=== PATIENT | male | born 1985 | race Two or more races ===

== ENCOUNTER 2020-01-24 16:13 | Emergency (ER) | payer OTHER ==
[~2020-01-24] VITALS: Ht 185.4 cm; Wt 95.3 kg
[2020-01-24] MEDS ORDERED: IBUPROFEN 800 MG TAB PO ONE (19:45)
[2020-01-24] MEDS ORDERED: cefTRIAXone SODIUM 250 MG VL IM ONE (19:45)
[2020-01-24 20:03] VITALS: BP 115/71
== END 2020-01-24 20:03 ==
LOC: ER 16:13 → EEVIPCON 16:13 → ER 20:03
DX: N45.3 Epididymo-orchitis (principal)
CPT/HCPCS: 76870; 96372; 99284; J0696

== ENCOUNTER 2020-09-11 12:37 | Inpatient (IN) | payer OTHER ==
[~2020-09-11] VITALS: Ht 165.1 cm; Wt 83.5 kg
[2020-09-11 13:05] VITALS: BP 142/77
[2020-09-11 14:11] LABS: Basophils # (auto) 0 10 ^3/uL (0-0.2); Basophils % (auto) 0.6 % (0.0-2.0); Eosinophils # (auto) 0 10 ^3/uL (0-0.8); Eosinophils % (auto) 0.4 % (0.0-7.0); Hematocrit 46.2 % (41.0-53.0); Hemoglobin 15.9 g/dL (13.5-17.5); Lymphocytes # (auto) 1.7 10 ^3/uL (0.4-5.4); Mean Corpuscular Hemoglobin 29.7 pg (28.0-32.0); Mean Corpuscular Hgb Conc. 34.3 g/dL (32.0-36.0); Mean Corpuscular Volume 86.5 fL (80.0-100.0); Monocytes # (auto) 0.3 10 ^3/uL (0-1.3); Monocytes % (auto) 4.3 % (0.0-12.0); Neutrophils # (auto) 3.9 10 ^3/uL (1.6-8.6); Neutrophils % (auto) 65.7 % (37.0-80.0); Nucleated Red Blood Cells % 0.2 %; Platelet Count (auto) 221 10^3/uL (140-450); Red Blood Cells 5.34 10^6/uL (4.5-5.90); Red Cell Distribution Width 14.4 % (11.8-14.3); White Blood Cell 5.9 10^3/uL (4.4-10.8)
[2020-09-11 14:25] LABS: INR 1.1 (0.9-1.15); Partial Thromboplastin Time 31.6 sec (23.0-31.2)
[2020-09-11 14:30] LABS: Albumin 4.1 g/dL (3.4-5.0); Calcium 9.3 mg/dL (8.5-10.1); Potassium 4.6 mmol/L (3.5-5.1)
[2020-09-11 14:33] LABS: BUN/Creatinine Ratio 13.6; Bilirubin, Total 0.9 mg/dL (0.2-1.0); Total Protein 8.8 g/dL (6.4-8.2)
[2020-09-11] MEDS ORDERED: IOHEXOL 300 MG/ML 100ML BOTTLE IJ ONE (15:19)
[2020-09-11 17:00] VITALS: BP 153/87
[2020-09-11] MEDS ORDERED: SUMAtriptan SUCCINATE 25 MG TAB PO PRN ×2 (20:45→21:15)
[2020-09-11] MEDS: SUMAtriptan SUCCINATE 25 MG TAB PO PRN (21:02)
[2020-09-11 21:24] LABS: Urine Bacteria NONE SEEN /hpf (None Seen); Urine Blood Negative /uL (Negative); Urine WBC <1 /hpf (0 - 3)
[2020-09-11 22:00] VITALS: BP 150/86
[2020-09-12 05:00] VITALS: BP 133/76
[2020-09-12] MEDS ORDERED: PROPOFOL 10 MG/ML 20 ML IV ONE (07:02)
[2020-09-12] MEDS ORDERED: ONDANSETRON HCL 4 MG/2 ML VIAL ONE (07:02)
[2020-09-12] MEDS ORDERED: MIDAZOLAM HCL 1MG/1ML-2 ML VIAL ONE (07:02)
[2020-09-12] MEDS ORDERED: fentaNYL CITRATE 100 MCG/2 ML VL ONE (07:02)
[2020-09-12] MEDS ORDERED: GLYCOPYRROLATE 0.2 MG/ML 1ML VIAL ONE (07:02)
[2020-09-12] MEDS ORDERED: LIDOCAINE W/ EPINEPHRINE 1% 20ML VIAL ONE (07:02)
[2020-09-12] MEDS ORDERED: SODIUM CHLORIDE LOCK 10 ML ONE (07:02)
[2020-09-12] MEDS ORDERED: NEOMYCIN-BACITRACIN-POLYM 15GM TOP OINT TOP ONE (07:03)
[2020-09-12] MEDS ORDERED: ceFAZolin 1GM/50ML 50 ML IV ONE (07:06)
[2020-09-12] MEDS ORDERED: LIDOCAINE HCL 2% TOP JELLY 5ML TOP ONE (07:41)
[2020-09-12] MEDS ORDERED: LIDOCAINE 2% (LOCAL ANESTH.) PF 5ml SDV ONE (07:41)
[2020-09-12 08:30] VITALS: BP 163/106
[2020-09-12] MEDS ORDERED: HYDROmorphone HCL 2 MG/ML VL IV PRN ×3 (08:30→11:45)
[2020-09-12] MEDS ORDERED: METOCLOPRAMIDE HCL 5MG/ml INJ 2ml VIAL IV PRN (08:30)
[2020-09-12] MEDS ORDERED: MORPHINE SULFATE 4 MG/ML SYR/VIAL IV PRN (08:30)
[2020-09-12] MEDS: ENOXAPARIN SOD 40 MG/0.4 ML SYRINGE SC SCH (10:49)
[2020-09-12] MEDS ORDERED: ONDANSETRON HCL 4 MG/2 ML VIAL IV PRN (11:45)
[2020-09-12] MEDS: ONDANSETRON HCL 4 MG/2 ML VIAL IV PRN (12:16)
[2020-09-12] MEDS: ceFAZolin 1GM/50ML 50 ML IV SCH ×2 (14:30→22:02)
[2020-09-12 14:31] VITALS: BP 134/93
[2020-09-12 16:36] VITALS: BP 128/69
[2020-09-12 22:00] VITALS: BP 156/92
[2020-09-13 05:00] VITALS: BP 118/70
[2020-09-13] MEDS: ceFAZolin 1GM/50ML 50 ML IV SCH ×3 (06:22→22:02)
[2020-09-13 06:39] LABS: Basophils # (auto) 0 10 ^3/uL (0-0.2); Basophils % (auto) 0.2 % (0.0-2.0); Eosinophils # (auto) 0 10 ^3/uL (0-0.8); Hematocrit 46.1 % (41.0-53.0); Hemoglobin 15.9 g/dL (13.5-17.5); Lymphocytes # (auto) 2.3 10 ^3/uL (0.4-5.4); Lymphocytes % (auto) 18.1 % (10.0-50.0); Mean Corpuscular Hemoglobin 29.6 pg (28.0-32.0); Mean Corpuscular Hgb Conc. 34.5 g/dL (32.0-36.0); Mean Corpuscular Volume 85.7 fL (80.0-100.0); Monocytes # (auto) 0.8 10 ^3/uL (0-1.3); Monocytes % (auto) 6.2 % (0.0-12.0); Neutrophils # (auto) 9.5 10 ^3/uL (1.6-8.6); Neutrophils % (auto) 75.5 % (37.0-80.0); Nucleated Red Blood Cells % 0.3 %; Platelet Count (auto) 228 10^3/uL (140-450); Red Blood Cells 5.39 10^6/uL (4.5-5.90); White Blood Cell 12.6 10^3/uL (4.4-10.8)
[2020-09-13 06:53] LABS: Albumin 3.5 g/dL (3.4-5.0); Calcium 8.6 mg/dL (8.5-10.1); Potassium 4.4 mmol/L (3.5-5.1)
[2020-09-13 06:58] LABS: BUN/Creatinine Ratio 17.7; Bilirubin, Total 0.6 mg/dL (0.2-1.0)
[2020-09-13 08:15] VITALS: BP 144/117
[2020-09-13] MEDS: ENOXAPARIN SOD 40 MG/0.4 ML SYRINGE SC SCH (09:04)
[2020-09-13 09:12] VITALS: BP 144/117
[2020-09-13 13:00] VITALS: BP 161/94
[2020-09-13] MEDS ORDERED: HYDROmorphone HCL 2 MG/ML VL IV PRN (13:15)
[2020-09-13] MEDS: OXYCODONE W/ ACETAMINOPHEN 5/325MG TABLET PO PRN (14:05)
[2020-09-13 17:22] VITALS: BP 136/93
[2020-09-13 22:00] VITALS: BP 149/93
[2020-09-14 05:00] VITALS: BP 146/97
[2020-09-14] MEDS: ceFAZolin 1GM/50ML 50 ML IV SCH ×3 (05:56→21:31)
[2020-09-14] MEDS ORDERED: IOPAMIDOL 76 % (ISOVUE-370) 100ML BTL IV ONE (08:38)
[2020-09-14 09:00] VITALS: BP 139/95
[2020-09-14] MEDS: amLODIPine BESYLATE 5 MG TAB PO SCH (09:27)
[2020-09-14] MEDS: PANTOPRAZOLE 40 MG TAB PO SCH (09:28)
[2020-09-14] MEDS: ENOXAPARIN SOD 40 MG/0.4 ML SYRINGE SC SCH (09:28)
[2020-09-14] MEDS: OXYCODONE W/ ACETAMINOPHEN 5/325MG TABLET PO PRN ×2 (09:39→21:31)
[2020-09-14] MEDS ORDERED: GADOTERATE MEG 10 MMOL/20ml INJ (0.5MMOL/ml) IV ONE (12:02)
[2020-09-14 12:40] VITALS: BP 142/92
[2020-09-14 16:18] VITALS: BP 148/91
[2020-09-14] MEDS: SUMAtriptan SUCCINATE 25 MG TAB PO PRN (18:08)
[2020-09-14 22:00] VITALS: BP 148/96
[2020-09-15 05:00] VITALS: BP 123/86
[2020-09-15] MEDS: ceFAZolin 1GM/50ML 50 ML IV SCH ×4 (06:26→21:48)
[2020-09-15 09:00] VITALS: BP 139/90
[2020-09-15] MEDS: ENOXAPARIN SOD 40 MG/0.4 ML SYRINGE SC SCH (09:35)
[2020-09-15] MEDS: PANTOPRAZOLE 40 MG TAB PO SCH (09:35)
[2020-09-15] MEDS: amLODIPine BESYLATE 5 MG TAB PO SCH (09:35)
[2020-09-15] MEDS: SOD CHL 0.45% 1,000 ML IV SCH ×2 (11:41→17:55)
[2020-09-15 11:52] LABS: INR 1.05 (0.9-1.15); Partial Thromboplastin Time 30.2 sec (23.0-31.2)
[2020-09-15 12:50] VITALS: BP 99/66
[2020-09-15 13:00] VITALS: BP 142/92
[2020-09-15] MEDS ORDERED: GADOTERATE MEG 10 MMOL/20ml INJ (0.5MMOL/ml) IV ONE (13:22)
[2020-09-15] MEDS: HEPARIN SODIUM (PORCINE) 5000 UNITS/ML 1ML VIAL ONE ×2 (13:33→14:50)
[2020-09-15] MEDS ORDERED: LIDOCAINE 1% HCL (LOCAL ANESTH.) INJ 20ML MDV ONE (13:33)
[2020-09-15] MEDS ORDERED: HEPARIN 1,000 UNITS/ml 1ML VIAL ONE (13:33)
[2020-09-15] MEDS ORDERED: fentaNYL CITRATE 100 MCG/2 ML VL ONE (13:44)
[2020-09-15] MEDS ORDERED: MIDAZOLAM HCL 1MG/1ML-2 ML VIAL ONE (13:44)
[2020-09-15] MEDS ORDERED: PROPOFOL 10 MG/ML 20 ML IV ONE (13:46)
[2020-09-15] MEDS ORDERED: cefOXitin 2GM/100ML 100 ML IV ONE (13:50)
[2020-09-15] MEDS ORDERED: BUPIVACAINE 0.5% MPF INJ 30ML SDV IJ ONE (14:35)
[2020-09-15] MEDS ORDERED: ONDANSETRON HCL 4 MG/2 ML VIAL ONE (14:40)
[2020-09-15] MEDS ORDERED: HYDROmorphone HCL 2 MG/ML VL IV PRN ×2 (15:30)
[2020-09-15] MEDS ORDERED: METOCLOPRAMIDE HCL 5MG/ml INJ 2ml VIAL IV PRN (15:30)
[2020-09-15] MEDS: OXYCODONE W/ ACETAMINOPHEN 5/325MG TABLET PO PRN ×2 (16:53→21:48)
[2020-09-15 17:00] VITALS: BP 141/87
[2020-09-15 22:00] VITALS: BP 155/90
[2020-09-16] MEDS: SOD CHL 0.45% 1,000 ML IV SCH ×4 (00:35→22:38)
[2020-09-16 05:00] VITALS: BP 135/79
[2020-09-16] MEDS: ceFAZolin 1GM/50ML 50 ML IV SCH ×3 (05:44→22:38)
[2020-09-16 06:53] LABS: Calcium 8.4 mg/dL (8.5-10.1); Potassium 4.4 mmol/L (3.5-5.1)
[2020-09-16 06:55] LABS: BUN/Creatinine Ratio 13.3
[2020-09-16 09:00] VITALS: BP 146/105
[2020-09-16] MEDS: PANTOPRAZOLE 40 MG TAB PO SCH (09:48)
[2020-09-16] MEDS: amLODIPine BESYLATE 5 MG TAB PO SCH (09:48)
[2020-09-16] MEDS: ENOXAPARIN SOD 40 MG/0.4 ML SYRINGE SC SCH (09:48)
[2020-09-16] MEDS: OXYCODONE W/ ACETAMINOPHEN 5/325MG TABLET PO PRN ×3 (09:49→22:39)
[2020-09-16 14:46] VITALS: BP 133/70
[2020-09-16 16:50] VITALS: BP 135/86
[2020-09-16 22:00] VITALS: BP 137/91
[2020-09-17] MEDS: SOD CHL 0.45% 1,000 ML IV SCH ×2 (03:39→11:14)
[2020-09-17 05:00] VITALS: BP 129/79
[2020-09-17] MEDS: ceFAZolin 1GM/50ML 50 ML IV SCH ×3 (05:58→21:07)
[2020-09-17 08:00] VITALS: BP 137/87
[2020-09-17 09:00] VITALS: BP 137/87
[2020-09-17] MEDS: PANTOPRAZOLE 40 MG TAB PO SCH (11:15)
[2020-09-17] MEDS: amLODIPine BESYLATE 5 MG TAB PO SCH (11:15)
[2020-09-17] MEDS: ENOXAPARIN SOD 40 MG/0.4 ML SYRINGE SC SCH (11:16)
[2020-09-17 13:00] VITALS: BP 145/94
[2020-09-17 17:00] VITALS: BP 141/78
[2020-09-17] MEDS: OXYCODONE W/ ACETAMINOPHEN 5/325MG TABLET PO PRN (17:09)
[2020-09-17] MEDS: SUMAtriptan SUCCINATE 25 MG TAB PO PRN (21:07)
[2020-09-17 22:00] VITALS: BP 153/87
[2020-09-18 05:00] VITALS: BP 143/85
[2020-09-18] MEDS: ceFAZolin 1GM/50ML 50 ML IV SCH ×3 (05:37→22:22)
[2020-09-18 08:30] VITALS: BP 130/73
[2020-09-18] MEDS: ENOXAPARIN SOD 40 MG/0.4 ML SYRINGE SC SCH (09:39)
[2020-09-18] MEDS: PANTOPRAZOLE 40 MG TAB PO SCH (09:39)
[2020-09-18] MEDS: amLODIPine BESYLATE 5 MG TAB PO SCH (09:40)
[2020-09-18] MEDS: LACTULOSE 20Gm/30ML SOLN PO SCH ×2 (12:00→17:54)
[2020-09-18 13:00] VITALS: BP 145/79
[2020-09-18 16:49] VITALS: BP 137/89
[2020-09-18] MEDS: SUMAtriptan SUCCINATE 25 MG TAB PO PRN (18:01)
[2020-09-18 22:00] VITALS: BP 141/96
[2020-09-19 05:25] VITALS: BP 146/92
[2020-09-19] MEDS: ceFAZolin 1GM/50ML 50 ML IV SCH ×3 (05:27→22:06)
[2020-09-19] MEDS: LACTULOSE 20Gm/30ML SOLN PO SCH ×4 (05:57→18:00)
[2020-09-19 09:13] VITALS: BP 143/83
[2020-09-19] MEDS: PANTOPRAZOLE 40 MG TAB PO SCH (10:14)
[2020-09-19] MEDS: ENOXAPARIN SOD 40 MG/0.4 ML SYRINGE SC SCH (10:14)
[2020-09-19] MEDS: amLODIPine BESYLATE 5 MG TAB PO SCH (10:14)
[2020-09-19 12:55] VITALS: BP 136/86
[2020-09-19 16:34] VITALS: BP 138/85
[2020-09-19 22:00] VITALS: BP 149/92
[2020-09-20 05:00] VITALS: BP 130/82
[2020-09-20] MEDS: LACTULOSE 20Gm/30ML SOLN PO SCH ×5 (06:00→22:53)
[2020-09-20] MEDS: ceFAZolin 1GM/50ML 50 ML IV SCH ×3 (06:00→21:05)
[2020-09-20 09:00] VITALS: BP 148/85
[2020-09-20] MEDS: amLODIPine BESYLATE 5 MG TAB PO SCH (09:41)
[2020-09-20] MEDS: PANTOPRAZOLE 40 MG TAB PO SCH (09:41)
[2020-09-20] MEDS: ENOXAPARIN SOD 40 MG/0.4 ML SYRINGE SC SCH (09:41)
[2020-09-20 13:00] VITALS: BP 147/81
[2020-09-20 17:00] VITALS: BP 140/93
[2020-09-20 22:00] VITALS: BP 144/81
[2020-09-21] MEDS: LACTULOSE 20Gm/30ML SOLN PO SCH ×4 (01:42→23:46)
[2020-09-21 05:00] VITALS: BP 143/80
[2020-09-21] MEDS: ceFAZolin 1GM/50ML 50 ML IV SCH ×3 (05:14→21:01)
[2020-09-21 07:53] VITALS: BP 137/71
[2020-09-21] MEDS: ENOXAPARIN SOD 40 MG/0.4 ML SYRINGE SC SCH (09:27)
[2020-09-21] MEDS: PANTOPRAZOLE 40 MG TAB PO SCH (09:28)
[2020-09-21] MEDS: amLODIPine BESYLATE 5 MG TAB PO SCH (09:28)
[2020-09-21 12:30] VITALS: BP 144/75
[2020-09-21 16:35] VITALS: BP 150/87
[2020-09-21] MEDS: SUMAtriptan SUCCINATE 25 MG TAB PO PRN (16:43)
[2020-09-21 22:00] VITALS: BP 145/88
[2020-09-22 05:00] VITALS: BP 127/73
[2020-09-22] MEDS: ceFAZolin 1GM/50ML 50 ML IV SCH ×3 (05:09→21:10)
[2020-09-22 08:30] VITALS: BP 140/86
[2020-09-22] MEDS: amLODIPine BESYLATE 5 MG TAB PO SCH (09:03)
[2020-09-22] MEDS: PANTOPRAZOLE 40 MG TAB PO SCH (09:03)
[2020-09-22] MEDS: ENOXAPARIN SOD 40 MG/0.4 ML SYRINGE SC SCH (09:03)
[2020-09-22] MEDS: LACTULOSE 20Gm/30ML SOLN PO SCH ×2 (11:57→17:09)
[2020-09-22 12:30] VITALS: BP 144/76
[2020-09-22 16:44] VITALS: BP 146/79
[2020-09-22] MEDS: SUMAtriptan SUCCINATE 25 MG TAB PO PRN (21:11)
[2020-09-22 22:00] VITALS: BP 138/87
[2020-09-23] VITALS (10 sets, daily range): BP systolic 129–141; BP diastolic 78–90
[2020-09-23] MEDS: LACTULOSE 20Gm/30ML SOLN PO SCH ×5 (06:00→23:31)
[2020-09-23] MEDS: ceFAZolin 1GM/50ML 50 ML IV SCH (06:00)
[2020-09-23] MEDS: amLODIPine BESYLATE 5 MG TAB PO SCH (10:31)
[2020-09-23] MEDS: PANTOPRAZOLE 40 MG TAB PO SCH (10:31)
[2020-09-23] MEDS: ENOXAPARIN SOD 40 MG/0.4 ML SYRINGE SC SCH (10:32)
[2020-09-23] MEDS: [UNRECOGNIZED DRUG - OTHER] IV SCH (11:58)
[2020-09-23] MEDS: MAGNESIUM SULF IV SCH (11:58)
[2020-09-23] MEDS: POTASSIUM CHLORIDE IV SCH (11:58)
[2020-09-23] MEDS ORDERED: ACETAMINOPHEN 325 MG TAB PO SCH (14:00)
[2020-09-23] MEDS: ONDANSETRON HCL 4 MG/2 ML VIAL IV PRN ×2 (15:01→21:19)
[2020-09-23] MEDS: OXYCODONE W/ ACETAMINOPHEN 5/325MG TABLET PO PRN (15:06)
[2020-09-23] MEDS: ETOPOSIDE IV SCH (15:11)
[2020-09-23] MEDS: SODIUM CHL 0.9% IV SCH ×2 (15:11→16:26)
[2020-09-23] MEDS: CISPLATIN IV SCH (16:26)
[2020-09-23] MEDS: SUMAtriptan SUCCINATE 25 MG TAB PO PRN (16:57)
[2020-09-24] MEDS: ONDANSETRON HCL 4 MG/2 ML VIAL IV PRN ×5 (01:48→20:21)
[2020-09-24 05:00] VITALS: BP 127/82
[2020-09-24] MEDS: LACTULOSE 20Gm/30ML SOLN PO SCH (05:35)
[2020-09-24 06:56] LABS: Basophils # (auto) 0 10 ^3/uL (0-0.2); Basophils % (auto) 0.7 % (0.0-2.0); Eosinophils # (auto) 0.1 10 ^3/uL (0-0.8); Eosinophils % (auto) 1.6 % (0.0-7.0); Hematocrit 43.8 % (41.0-53.0); Hemoglobin 15.2 g/dL (13.5-17.5); Lymphocytes # (auto) 3.2 10 ^3/uL (0.4-5.4); Lymphocytes % (auto) 51.5 % (10.0-50.0); Mean Corpuscular Hemoglobin 29.6 pg (28.0-32.0); Mean Corpuscular Hgb Conc. 34.6 g/dL (32.0-36.0); Mean Corpuscular Volume 85.7 fL (80.0-100.0); Monocytes # (auto) 0.5 10 ^3/uL (0-1.3); Monocytes % (auto) 7.4 % (0.0-12.0); Neutrophils # (auto) 2.4 10 ^3/uL (1.6-8.6); Neutrophils % (auto) 38.8 % (37.0-80.0); Nucleated Red Blood Cells % 0.2 %; Platelet Count (auto) 201 10^3/uL (140-450); Red Blood Cells 5.11 10^6/uL (4.5-5.90); Red Cell Distribution Width 13.5 % (11.8-14.3); White Blood Cell 6.3 10^3/uL (4.4-10.8)
[2020-09-24 07:12] LABS: Potassium 3.9 mmol/L (3.5-5.1)
[2020-09-24 07:20] LABS: Albumin 3.3 g/dL (3.4-5.0); BUN/Creatinine Ratio 15.8; Bilirubin, Total 0.6 mg/dL (0.2-1.0); Calcium 8.5 mg/dL (8.5-10.1); Total Protein 7.3 g/dL (6.4-8.2)
[2020-09-24 09:00] VITALS: BP 133/85
[2020-09-24] MEDS: PANTOPRAZOLE 40 MG TAB PO SCH (09:29)
[2020-09-24] MEDS: ENOXAPARIN SOD 40 MG/0.4 ML SYRINGE SC SCH (09:29)
[2020-09-24] MEDS: amLODIPine BESYLATE 5 MG TAB PO SCH (09:29)
[2020-09-24] MEDS: POTASSIUM CHLORIDE IV SCH (12:13)
[2020-09-24] MEDS: [UNRECOGNIZED DRUG - OTHER] IV SCH (12:13)
[2020-09-24] MEDS: MAGNESIUM SULF IV SCH (12:13)
[2020-09-24] MEDS ORDERED: LACTULOSE 20Gm/30ML SOLN PO PRN (12:15)
[2020-09-24 13:00] VITALS: BP 136/87
[2020-09-24] MEDS: ETOPOSIDE IV SCH (15:01)
[2020-09-24] MEDS: SODIUM CHL 0.9% IV SCH ×3 (15:01→18:00)
[2020-09-24] MEDS: CISPLATIN IV SCH (16:20)
[2020-09-24 17:00] VITALS: BP 134/83
[2020-09-24] MEDS: diphenhdrAMINE HCL 25 MG CAP PO SCH (17:00)
[2020-09-24] MEDS: ACETAMINOPHEN 325 MG TAB PO SCH (17:00)
[2020-09-24] MEDS: BLEOMYCIN SULFATE IV SCH (18:00)
[2020-09-24 21:00] VITALS: BP 145/83
[2020-09-25] MEDS: ONDANSETRON HCL 4 MG/2 ML VIAL IV PRN ×3 (00:33→14:45)
[2020-09-25 05:00] VITALS: BP 135/79
[2020-09-25 09:00] VITALS: BP 135/79
[2020-09-25] MEDS: amLODIPine BESYLATE 5 MG TAB PO SCH (09:39)
[2020-09-25] MEDS: PANTOPRAZOLE 40 MG TAB PO SCH (09:39)
[2020-09-25] MEDS: ENOXAPARIN SOD 40 MG/0.4 ML SYRINGE SC SCH (09:40)
[2020-09-25] MEDS: [UNRECOGNIZED DRUG - OTHER] IV SCH (11:51)
[2020-09-25] MEDS: POTASSIUM CHLORIDE IV SCH (11:51)
[2020-09-25] MEDS: MAGNESIUM SULF IV SCH (11:51)
[2020-09-25 13:00] VITALS: BP 136/84
[2020-09-25] MEDS: SUMAtriptan SUCCINATE 25 MG TAB PO PRN (14:52)
[2020-09-25] MEDS: ETOPOSIDE IV SCH (16:04)
[2020-09-25] MEDS: SODIUM CHL 0.9% IV SCH ×2 (16:04→16:05)
[2020-09-25] MEDS: CISPLATIN IV SCH (16:05)
[2020-09-25 17:00] VITALS: BP 154/94
[2020-09-25 22:00] VITALS: BP 143/83
[2020-09-26 05:00] VITALS: BP 122/74
[2020-09-26 09:00] VITALS: BP 136/91
[2020-09-26] MEDS: PANTOPRAZOLE 40 MG TAB PO SCH (09:08)
[2020-09-26] MEDS: amLODIPine BESYLATE 5 MG TAB PO SCH (09:08)
[2020-09-26] MEDS: ENOXAPARIN SOD 40 MG/0.4 ML SYRINGE SC SCH (09:08)
[2020-09-26] MEDS: ONDANSETRON HCL 4 MG/2 ML VIAL IV PRN ×3 (09:09→19:15)
[2020-09-26] MEDS: MAGNESIUM SULF IV SCH (11:51)
[2020-09-26] MEDS: POTASSIUM CHLORIDE IV SCH (11:51)
[2020-09-26] MEDS: [UNRECOGNIZED DRUG - OTHER] IV SCH (11:51)
[2020-09-26 13:00] VITALS: BP 137/83
[2020-09-26] MEDS: SODIUM CHL 0.9% IV SCH ×2 (15:10→16:00)
[2020-09-26] MEDS: ETOPOSIDE IV SCH (15:10)
[2020-09-26] MEDS: CISPLATIN IV SCH (16:00)
[2020-09-26 17:00] VITALS: BP 140/86
[2020-09-26] MEDS: OXYCODONE W/ ACETAMINOPHEN 5/325MG TABLET PO PRN (17:11)
[2020-09-26 22:00] VITALS: BP 127/80
[2020-09-27 05:00] VITALS: BP 119/74
[2020-09-27] MEDS: PANTOPRAZOLE 40 MG TAB PO SCH (08:53)
[2020-09-27] MEDS: amLODIPine BESYLATE 5 MG TAB PO SCH (08:53)
[2020-09-27] MEDS: ENOXAPARIN SOD 40 MG/0.4 ML SYRINGE SC SCH (08:53)
[2020-09-27 09:00] VITALS: BP 119/73
[2020-09-27] MEDS: [UNRECOGNIZED DRUG - OTHER] IV SCH (11:54)
[2020-09-27] MEDS: MAGNESIUM SULF IV SCH (11:54)
[2020-09-27] MEDS: POTASSIUM CHLORIDE IV SCH (11:54)
[2020-09-27 13:00] VITALS: BP 139/74
[2020-09-27] MEDS: ONDANSETRON HCL 4 MG/2 ML VIAL IV PRN ×2 (15:30→20:27)
[2020-09-27] MEDS: ETOPOSIDE IV SCH (15:52)
[2020-09-27] MEDS: SODIUM CHL 0.9% IV SCH ×2 (15:52→17:15)
[2020-09-27 17:00] VITALS: BP 146/79
[2020-09-27] MEDS: CISPLATIN IV SCH (17:15)
[2020-09-27] MEDS: SUMAtriptan SUCCINATE 25 MG TAB PO PRN (20:26)
[2020-09-27 22:00] VITALS: BP 143/84
[2020-09-28 05:00] VITALS: BP 133/68
[2020-09-28 09:00] VITALS: BP 135/83
[2020-09-28] MEDS: ENOXAPARIN SOD 40 MG/0.4 ML SYRINGE SC SCH (10:17)
[2020-09-28] MEDS: amLODIPine BESYLATE 5 MG TAB PO SCH (10:18)
[2020-09-28] MEDS: PANTOPRAZOLE 40 MG TAB PO SCH (10:18)
[2020-09-28 13:00] VITALS: BP 124/102
[2020-09-28 17:00] VITALS: BP 134/89
[2020-09-28] MEDS: SUMAtriptan SUCCINATE 25 MG TAB PO PRN (20:58)
[2020-09-28 22:00] VITALS: BP 150/88
[2020-09-29 05:00] VITALS: BP 115/76
[2020-09-29 08:00] VITALS: BP 132/88
[2020-09-29 09:00] VITALS: BP 132/88
[2020-09-29] MEDS: amLODIPine BESYLATE 5 MG TAB PO SCH (10:10)
[2020-09-29] MEDS: PANTOPRAZOLE 40 MG TAB PO SCH (10:13)
[2020-09-29] MEDS: ENOXAPARIN SOD 40 MG/0.4 ML SYRINGE SC SCH (10:14)
[2020-09-29 13:00] VITALS: BP 138/91
[2020-09-29 17:00] VITALS: BP_SYST 135; BP_SYST 190; BP_DIAS 101; BP_DIAS 73
[2020-09-29 22:00] VITALS: BP 137/86
[2020-09-30 05:00] VITALS: BP 126/84
[2020-09-30 08:59] VITALS: BP 133/69
[2020-09-30] MEDS: amLODIPine BESYLATE 5 MG TAB PO SCH (09:41)
[2020-09-30] MEDS: ENOXAPARIN SOD 40 MG/0.4 ML SYRINGE SC SCH (09:42)
[2020-09-30] MEDS: PANTOPRAZOLE 40 MG TAB PO SCH (09:42)
[2020-09-30 10:04] LABS: Calcium 8.5 mg/dL (8.5-10.1)
[2020-09-30 10:05] LABS: BUN/Creatinine Ratio 23.7
[2020-09-30 10:56] LABS: Basophils # (auto) 0.1 10 ^3/uL (0-0.2); Basophils % (auto) 1.2 % (0.0-2.0); Eosinophils # (auto) 0.1 10 ^3/uL (0-0.8); Eosinophils % (auto) 1.7 % (0.0-7.0); Hematocrit 43.9 % (41.0-53.0); Hemoglobin 15.4 g/dL (13.5-17.5); Lymphocytes # (auto) 1.7 10 ^3/uL (0.4-5.4); Lymphocytes % (auto) 38.7 % (10.0-50.0); Mean Corpuscular Hemoglobin 30.1 pg (28.0-32.0); Mean Corpuscular Volume 85.8 fL (80.0-100.0); Monocytes # (auto) 0.1 10 ^3/uL (0-1.3); Monocytes % (auto) 1.3 % (0.0-12.0); Neutrophils # (auto) 2.5 10 ^3/uL (1.6-8.6); Neutrophils % (auto) 57.1 % (37.0-80.0); Nucleated Red Blood Cells % 0.4 %; Platelet Count (auto) 182 10^3/uL (140-450); Red Blood Cells 5.12 10^6/uL (4.5-5.90); Red Cell Distribution Width 13.5 % (11.8-14.3); White Blood Cell 4.4 10^3/uL (4.4-10.8)
[2020-09-30 12:50] VITALS: BP 131/80
[2020-09-30 16:42] VITALS: BP 127/80
[2020-09-30 22:00] VITALS: BP 131/97
[2020-10-01 05:00] VITALS: BP 135/80
[2020-10-01 09:00] VITALS: BP 131/81
[2020-10-01] MEDS: amLODIPine BESYLATE 5 MG TAB PO SCH (09:22)
[2020-10-01] MEDS: PANTOPRAZOLE 40 MG TAB PO SCH (09:23)
[2020-10-01] MEDS: ENOXAPARIN SOD 40 MG/0.4 ML SYRINGE SC SCH (09:23)
[2020-10-01 13:00] VITALS: BP 137/73
[2020-10-01 17:00] VITALS: BP 122/74
[2020-10-01] MEDS: diphenhdrAMINE HCL 25 MG CAP PO SCH (17:27)
[2020-10-01] MEDS: ACETAMINOPHEN 325 MG TAB PO SCH (17:27)
[2020-10-01] MEDS: BLEOMYCIN SULFATE IV SCH (18:21)
[2020-10-01] MEDS: SODIUM CHL 0.9% IV SCH (18:21)
[2020-10-01 22:00] VITALS: BP 123/70
[2020-10-01] MEDS: CIPROFLOXACIN HCL 500 MG TAB PO SCH (22:30)
[2020-10-02 05:00] VITALS: BP 135/78
[2020-10-02 09:00] VITALS: BP 128/76
[2020-10-02] MEDS: ENOXAPARIN SOD 40 MG/0.4 ML SYRINGE SC SCH (09:18)
[2020-10-02] MEDS: PANTOPRAZOLE 40 MG TAB PO SCH (09:18)
[2020-10-02] MEDS: CIPROFLOXACIN HCL 500 MG TAB PO SCH ×2 (09:18→22:00)
[2020-10-02] MEDS: amLODIPine BESYLATE 5 MG TAB PO SCH (09:19)
[2020-10-02 13:00] VITALS: BP 127/77
[2020-10-02 16:52] VITALS: BP 126/69
[2020-10-02 22:00] VITALS: BP 127/68
[2020-10-03 05:00] VITALS: BP 123/72
[2020-10-03 08:00] VITALS: BP 121/75
[2020-10-03] MEDS: ENOXAPARIN SOD 40 MG/0.4 ML SYRINGE SC SCH (08:50)
[2020-10-03] MEDS: CIPROFLOXACIN HCL 500 MG TAB PO SCH ×2 (08:50→21:45)
[2020-10-03] MEDS: amLODIPine BESYLATE 5 MG TAB PO SCH (08:50)
[2020-10-03] MEDS: PANTOPRAZOLE 40 MG TAB PO SCH (08:51)
[2020-10-03 12:00] VITALS: BP 125/70
[2020-10-03 16:00] VITALS: BP 118/72
[2020-10-03 22:00] VITALS: BP 122/77
[2020-10-04 05:00] VITALS: BP 127/72
[2020-10-04 09:30] VITALS: BP 135/91
[2020-10-04] MEDS: CIPROFLOXACIN HCL 500 MG TAB PO SCH ×2 (09:46→21:01)
[2020-10-04] MEDS: ENOXAPARIN SOD 40 MG/0.4 ML SYRINGE SC SCH (09:47)
[2020-10-04] MEDS: amLODIPine BESYLATE 5 MG TAB PO SCH (09:47)
[2020-10-04] MEDS: PANTOPRAZOLE 40 MG TAB PO SCH (09:47)
[2020-10-04 14:30] VITALS: BP 120/80
[2020-10-04 16:30] VITALS: BP 126/78
[2020-10-04 22:00] VITALS: BP 130/78
[2020-10-05 05:00] VITALS: BP 118/74
[2020-10-05 09:00] VITALS: BP 131/74
[2020-10-05] MEDS: ENOXAPARIN SOD 40 MG/0.4 ML SYRINGE SC SCH (09:54)
[2020-10-05] MEDS: CIPROFLOXACIN HCL 500 MG TAB PO SCH ×2 (09:54→21:16)
[2020-10-05] MEDS: PANTOPRAZOLE 40 MG TAB PO SCH (09:54)
[2020-10-05] MEDS: amLODIPine BESYLATE 5 MG TAB PO SCH (09:55)
[2020-10-05 13:00] VITALS: BP 133/85
[2020-10-05 17:00] VITALS: BP 117/79
[2020-10-05 22:00] VITALS: BP 125/79
[2020-10-06 05:00] VITALS: BP 119/73
[2020-10-06 09:00] VITALS: BP 134/69
[2020-10-06] MEDS: PANTOPRAZOLE 40 MG TAB PO SCH (09:44)
[2020-10-06] MEDS: CIPROFLOXACIN HCL 500 MG TAB PO SCH ×2 (09:44→21:05)
[2020-10-06] MEDS: ENOXAPARIN SOD 40 MG/0.4 ML SYRINGE SC SCH (09:44)
[2020-10-06] MEDS: amLODIPine BESYLATE 5 MG TAB PO SCH (09:45)
[2020-10-06 13:00] VITALS: BP 121/74
[2020-10-06 17:17] VITALS: BP 127/78
[2020-10-06 22:00] VITALS: BP 133/80
[2020-10-07 05:00] VITALS: BP 118/65
[2020-10-07 08:04] VITALS: BP 129/87
[2020-10-07] MEDS: ENOXAPARIN SOD 40 MG/0.4 ML SYRINGE SC SCH (10:11)
[2020-10-07] MEDS: amLODIPine BESYLATE 5 MG TAB PO SCH (10:11)
[2020-10-07] MEDS: CIPROFLOXACIN HCL 500 MG TAB PO SCH ×2 (10:11→21:30)
[2020-10-07] MEDS: PANTOPRAZOLE 40 MG TAB PO SCH (10:11)
[2020-10-07 12:30] VITALS: BP 124/72
[2020-10-07 17:08] VITALS: BP 119/78
[2020-10-07 21:50] VITALS: BP 119/75
[2020-10-08 05:30] VITALS: BP 126/75
[2020-10-08 08:30] VITALS: BP 127/73
[2020-10-08] MEDS: PANTOPRAZOLE 40 MG TAB PO SCH (09:15)
[2020-10-08] MEDS: CIPROFLOXACIN HCL 500 MG TAB PO SCH ×2 (09:15→21:17)
[2020-10-08] MEDS: amLODIPine BESYLATE 5 MG TAB PO SCH (09:16)
[2020-10-08 12:07] VITALS: BP 125/68
[2020-10-08] MEDS: ENOXAPARIN SOD 40 MG/0.4 ML SYRINGE SC SCH (14:51)
[2020-10-08 16:33] VITALS: BP 119/74
[2020-10-08] MEDS: ACETAMINOPHEN 325 MG TAB PO SCH (16:58)
[2020-10-08] MEDS: diphenhdrAMINE HCL 25 MG CAP PO SCH (16:58)
[2020-10-08] MEDS: SODIUM CHL 0.9% IV SCH (18:00)
[2020-10-08] MEDS: BLEOMYCIN SULFATE IV SCH (18:00)
[2020-10-08 22:00] VITALS: BP 128/74
[2020-10-09 05:26] VITALS: BP 124/71
[2020-10-09 08:08] VITALS: BP 115/68
[2020-10-09 08:23] LABS: Hematocrit 41.2 % (41.0-53.0); Hemoglobin 14.5 g/dL (13.5-17.5); Mean Corpuscular Hemoglobin 29.6 pg (28.0-32.0); Mean Corpuscular Hgb Conc. 35.1 g/dL (32.0-36.0); Mean Corpuscular Volume 84.3 fL (80.0-100.0); Platelet Count (auto) 113 10^3/uL (140-450); Red Blood Cells 4.89 10^6/uL (4.5-5.90); Red Cell Distribution Width 12.8 % (11.8-14.3); White Blood Cell 2.8 10^3/uL (4.4-10.8)
[2020-10-09 08:34] LABS: Basophils % (manual) 0 (0.0-2.0); Blast Cells 0; Metamyelocytes % 0; Myelocytes % 0; Promyelocytes % 0; Reactive Lymphocytes 0
[2020-10-09 08:47] LABS: Albumin 3.6 g/dL (3.4-5.0); Calcium 8.7 mg/dL (8.5-10.1); Potassium 4.4 mmol/L (3.5-5.1)
[2020-10-09 08:52] LABS: BUN/Creatinine Ratio 17.9; Bilirubin, Total 0.5 mg/dL (0.2-1.0); Total Protein 7.5 g/dL (6.4-8.2)
[2020-10-09 09:11] LABS: Band Neutrophils % (manual) 2; Eosinophils % (manual) 1 (0-7); Lymphocytes % (manual) 63 (10.0-50.0); Monocytes % (manual) 7 (0-12)
[2020-10-09 09:14] LABS: INR 1.08 (0.9-1.15); Partial Thromboplastin Time 31.9 sec (23.0-31.2)
[2020-10-09] MEDS: ENOXAPARIN SOD 40 MG/0.4 ML SYRINGE SC SCH (10:08)
[2020-10-09] MEDS: amLODIPine BESYLATE 5 MG TAB PO SCH (10:09)
[2020-10-09] MEDS: CIPROFLOXACIN HCL 500 MG TAB PO SCH ×2 (10:09→21:17)
[2020-10-09] MEDS: PANTOPRAZOLE 40 MG TAB PO SCH (10:09)
[2020-10-09 12:30] VITALS: BP 131/83
[2020-10-09 16:56] VITALS: BP 133/70
[2020-10-09 22:00] VITALS: BP 132/86
[2020-10-10 05:00] VITALS: BP 118/70
[2020-10-10 09:00] VITALS: BP 118/70
[2020-10-10] MEDS: PANTOPRAZOLE 40 MG TAB PO SCH (10:24)
[2020-10-10] MEDS: ENOXAPARIN SOD 30 MG/0.3 ML SYRINGE SC SCH (10:24)
[2020-10-10] MEDS: CIPROFLOXACIN HCL 500 MG TAB PO SCH ×2 (10:25→21:30)
[2020-10-10] MEDS: amLODIPine BESYLATE 5 MG TAB PO SCH (10:25)
[2020-10-10 13:00] VITALS: BP 124/78
[2020-10-10 17:00] VITALS: BP 125/7
[2020-10-10 22:04] VITALS: BP 133/91
[2020-10-11 05:00] VITALS: BP 115/84
[2020-10-11 09:00] VITALS: BP 127/71
[2020-10-11] MEDS: ENOXAPARIN SOD 30 MG/0.3 ML SYRINGE SC SCH (10:21)
[2020-10-11] MEDS: amLODIPine BESYLATE 5 MG TAB PO SCH (10:22)
[2020-10-11] MEDS: PANTOPRAZOLE 40 MG TAB PO SCH (10:22)
[2020-10-11] MEDS: CIPROFLOXACIN HCL 500 MG TAB PO SCH ×2 (10:22→21:06)
[2020-10-11 13:00] VITALS: BP 138/80
[2020-10-11 16:43] VITALS: BP 130/80
[2020-10-11 22:00] VITALS: BP 134/71
[2020-10-12 09:00] VITALS: BP 118/73
[2020-10-12 10:00] VITALS: BP 101/53
[2020-10-12] MEDS: CIPROFLOXACIN HCL 500 MG TAB PO SCH ×2 (10:55→21:53)
[2020-10-12] MEDS: amLODIPine BESYLATE 5 MG TAB PO SCH (10:55)
[2020-10-12] MEDS: PANTOPRAZOLE 40 MG TAB PO SCH (10:56)
[2020-10-12] MEDS: ENOXAPARIN SOD 30 MG/0.3 ML SYRINGE SC SCH (10:56)
[2020-10-12 22:00] VITALS: BP 129/69
[2020-10-13 08:48] VITALS: BP 104/68
[2020-10-13 09:39] VITALS: BP 104/68
[2020-10-13] MEDS: CIPROFLOXACIN HCL 500 MG TAB PO SCH ×2 (10:00→22:30)
[2020-10-13] MEDS: PANTOPRAZOLE 40 MG TAB PO SCH (10:30)
[2020-10-13] MEDS: amLODIPine BESYLATE 5 MG TAB PO SCH (10:30)
[2020-10-13] MEDS: ENOXAPARIN SOD 30 MG/0.3 ML SYRINGE SC SCH (10:30)
[2020-10-13 22:13] VITALS: BP 120/75
[2020-10-14 09:00] VITALS: BP 134/76
[2020-10-14] MEDS: PANTOPRAZOLE 40 MG TAB PO SCH (09:37)
[2020-10-14] MEDS: CIPROFLOXACIN HCL 500 MG TAB PO SCH (09:37)
[2020-10-14] MEDS: amLODIPine BESYLATE 5 MG TAB PO SCH (09:38)
[2020-10-14 10:00] VITALS: BP 134/76
[2020-10-14] MEDS: ENOXAPARIN SOD 30 MG/0.3 ML SYRINGE SC SCH (10:00)
[2020-10-14 11:33] LABS: Hematocrit 41.2 % (41.0-53.0); Hemoglobin 14.5 g/dL (13.5-17.5); Mean Corpuscular Hemoglobin 29.7 pg (28.0-32.0); Mean Corpuscular Hgb Conc. 35.2 g/dL (32.0-36.0); Mean Corpuscular Volume 84.6 fL (80.0-100.0); Platelet Count (auto) 123 10^3/uL (140-450); Red Blood Cells 4.87 10^6/uL (4.5-5.90); Red Cell Distribution Width 13.6 % (11.8-14.3); White Blood Cell 2.8 10^3/uL (4.4-10.8)
[2020-10-14 11:41] LABS: Basophils % (manual) 0 (0.0-2.0); Blast Cells 0; Eosinophils % (manual) 0 (0-7); Metamyelocytes % 0; Myelocytes % 0; Promyelocytes % 0; Reactive Lymphocytes 0
[2020-10-14 11:50] LABS: Calcium 8.9 mg/dL (8.5-10.1); Potassium 4.1 mmol/L (3.5-5.1)
[2020-10-14 11:53] LABS: BUN/Creatinine Ratio 20.2
[2020-10-14 12:59] LABS: Band Neutrophils % (manual) 1; Lymphocytes % (manual) 75 (10.0-50.0); Monocytes % (manual) 7 (0-12)
[2020-10-14 22:00] VITALS: BP 121/72
[2020-10-14 22:08] VITALS: BP 121/72
[2020-10-15 09:00] VITALS: BP 120/83
[2020-10-15] MEDS: amLODIPine BESYLATE 5 MG TAB PO SCH (09:47)
[2020-10-15] MEDS: ENOXAPARIN SOD 30 MG/0.3 ML SYRINGE SC SCH (09:47)
[2020-10-15 10:00] VITALS: BP 120/89
[2020-10-15] MEDS: [UNRECOGNIZED DRUG - OTHER] IV SCH (12:14)
[2020-10-15] MEDS: MAGNESIUM SULF IV SCH (12:14)
[2020-10-15] MEDS: POTASSIUM CHLORIDE IV SCH (12:14)
[2020-10-15] MEDS: SODIUM CHL 0.9% IV SCH ×2 (15:20→16:34)
[2020-10-15] MEDS: ETOPOSIDE IV SCH (15:20)
[2020-10-15] MEDS: ONDANSETRON HCL 4 MG/2 ML VIAL IV PRN (16:10)
[2020-10-15] MEDS: CISPLATIN IV SCH (16:34)
[2020-10-15] MEDS: diphenhdrAMINE HCL 25 MG CAP PO SCH (17:00)
[2020-10-15 22:00] VITALS: BP 124/67
[2020-10-16] VITALS (15 sets, daily range): BP systolic 123–158; BP diastolic 72–107
[2020-10-16] MEDS: amLODIPine BESYLATE 5 MG TAB PO SCH (09:12)
[2020-10-16] MEDS: ENOXAPARIN SOD 30 MG/0.3 ML SYRINGE SC SCH (09:12)
[2020-10-16] MEDS: PANTOPRAZOLE 40 MG TAB PO SCH (11:31)
[2020-10-16] MEDS: POTASSIUM CHLORIDE IV SCH (12:11)
[2020-10-16] MEDS: MAGNESIUM SULF IV SCH (12:11)
[2020-10-16] MEDS: [UNRECOGNIZED DRUG - OTHER] IV SCH (12:11)
[2020-10-16] MEDS: ONDANSETRON HCL 4 MG/2 ML VIAL IV PRN (15:20)
[2020-10-16] MEDS: SODIUM CHL 0.9% IV SCH ×2 (16:03→17:05)
[2020-10-16] MEDS: ETOPOSIDE IV SCH (16:03)
[2020-10-16] MEDS ORDERED: OXYCODONE W/ ACETAMINOPHEN 5/325MG TABLET PO PRN (16:30)
[2020-10-16] MEDS ORDERED: diphenhdrAMINE HCL 25 MG CAP PO SCH (17:00)
[2020-10-16] MEDS ORDERED: ACETAMINOPHEN 325 MG TAB PO SCH (17:00)
[2020-10-16] MEDS: CISPLATIN IV SCH (17:05)
[2020-10-16] MEDS ORDERED: BLEOMYCIN SULFATE IV SCH (18:00)
[2020-10-16] MEDS ORDERED: SODIUM CHL 0.9% IV SCH (18:00)
[2020-10-17] VITALS (8 sets, daily range): BP systolic 126–151; BP diastolic 71–99
[2020-10-17] MEDS: amLODIPine BESYLATE 5 MG TAB PO SCH (08:34)
[2020-10-17] MEDS: ENOXAPARIN SOD 30 MG/0.3 ML SYRINGE SC SCH (08:34)
[2020-10-17] MEDS: PANTOPRAZOLE 40 MG TAB PO SCH (08:34)
[2020-10-17] MEDS: MAGNESIUM SULF IV SCH (12:34)
[2020-10-17] MEDS: [UNRECOGNIZED DRUG - OTHER] IV SCH (12:34)
[2020-10-17] MEDS: POTASSIUM CHLORIDE IV SCH (12:34)
[2020-10-17] MEDS: ONDANSETRON HCL 4 MG/2 ML VIAL IV PRN (16:22)
[2020-10-17] MEDS: SODIUM CHL 0.9% IV SCH ×2 (16:23→17:25)
[2020-10-17] MEDS: ETOPOSIDE IV SCH (16:23)
[2020-10-17] MEDS: CISPLATIN IV SCH (17:25)
[2020-10-17] MEDS: SUMAtriptan SUCCINATE 25 MG TAB PO PRN (17:48)
[2020-10-18] MEDS: PANTOPRAZOLE 40 MG TAB PO SCH (08:46)
[2020-10-18] MEDS: ENOXAPARIN SOD 30 MG/0.3 ML SYRINGE SC SCH (08:46)
[2020-10-18] MEDS: amLODIPine BESYLATE 5 MG TAB PO SCH (08:46)
[2020-10-18 10:00] VITALS: BP 112/74
[2020-10-18] MEDS: MAGNESIUM SULF IV SCH (11:00)
[2020-10-18] MEDS: POTASSIUM CHLORIDE IV SCH (11:00)
[2020-10-18] MEDS: [UNRECOGNIZED DRUG - OTHER] IV SCH (11:00)
[2020-10-18] MEDS: SODIUM CHL 0.9% IV SCH ×2 (15:03→16:33)
[2020-10-18] MEDS: CISPLATIN IV SCH (15:03)
[2020-10-18] MEDS: ONDANSETRON HCL 4 MG/2 ML VIAL IV PRN (15:08)
[2020-10-18 16:30] VITALS: BP 130/85
[2020-10-18] MEDS: ETOPOSIDE IV SCH (16:33)
[2020-10-18 16:45] VITALS: BP 144/89
[2020-10-18 17:00] VITALS: BP 141/91
[2020-10-18 17:15] VITALS: BP 139/98
[2020-10-18 22:00] VITALS: BP 134/74
[2020-10-19] VITALS (7 sets, daily range): BP systolic 122–163; BP diastolic 75–109
[2020-10-19] MEDS: PANTOPRAZOLE 40 MG TAB PO SCH (10:57)
[2020-10-19] MEDS: ENOXAPARIN SOD 30 MG/0.3 ML SYRINGE SC SCH (10:57)
[2020-10-19] MEDS: amLODIPine BESYLATE 5 MG TAB PO SCH (10:57)
[2020-10-19] MEDS: [UNRECOGNIZED DRUG - OTHER] IV SCH (10:58)
[2020-10-19] MEDS: MAGNESIUM SULF IV SCH (10:58)
[2020-10-19] MEDS: POTASSIUM CHLORIDE IV SCH (10:58)
[2020-10-19] MEDS: ONDANSETRON HCL 4 MG/2 ML VIAL IV PRN (15:06)
[2020-10-19] MEDS: SODIUM CHL 0.9% IV SCH ×2 (15:06→16:00)
[2020-10-19] MEDS: CISPLATIN IV SCH (15:06)
[2020-10-19] MEDS: ETOPOSIDE IV SCH (16:00)
[2020-10-20 09:55] VITALS: BP 149/72
[2020-10-20] MEDS: ENOXAPARIN SOD 40 MG/0.4 ML SYRINGE SC SCH (09:55)
[2020-10-20] MEDS: PANTOPRAZOLE 40 MG TAB PO SCH (09:55)
[2020-10-20] MEDS: amLODIPine BESYLATE 5 MG TAB PO SCH (09:55)
[2020-10-20 14:57] LABS: Basophils # (auto) 0 10 ^3/uL (0-0.2); Basophils % (auto) 0.6 % (0.0-2.0); Eosinophils # (auto) 0 10 ^3/uL (0-0.8); Hematocrit 41.5 % (41.0-53.0); Hemoglobin 14.7 g/dL (13.5-17.5); Lymphocytes % (auto) 46.3 % (10.0-50.0); Mean Corpuscular Hgb Conc. 35.4 g/dL (32.0-36.0); Mean Corpuscular Volume 84.8 fL (80.0-100.0); Monocytes # (auto) 0.1 10 ^3/uL (0-1.3); Monocytes % (auto) 1.3 % (0.0-12.0); Neutrophils # (auto) 2.2 10 ^3/uL (1.6-8.6); Neutrophils % (auto) 50.8 % (37.0-80.0); Nucleated Red Blood Cells % 0.3 %; Platelet Count (auto) 223 10^3/uL (140-450); Red Blood Cells 4.89 10^6/uL (4.5-5.90); Red Cell Distribution Width 14.1 % (11.8-14.3); White Blood Cell 4.3 10^3/uL (4.4-10.8)
[2020-10-20 15:23] LABS: Albumin 3.8 g/dL (3.4-5.0); Potassium 4.1 mmol/L (3.5-5.1)
[2020-10-20 15:26] LABS: BUN/Creatinine Ratio 20.7; Bilirubin, Total 0.5 mg/dL (0.2-1.0); Total Protein 7.8 g/dL (6.4-8.2)
[2020-10-20] MEDS: SUMAtriptan SUCCINATE 25 MG TAB PO PRN (18:35)
[2020-10-20] MEDS ORDERED: FILGRASTIM(TBO) 480 MCG/0.8 ML SYRG SC SCH (20:00)
[2020-10-20 22:00] VITALS: BP 142/79
[2020-10-21 07:17] LABS: Basophils # (auto) 0 10 ^3/uL (0-0.2); Basophils % (auto) 0.2 % (0.0-2.0); Eosinophils # (auto) 0 10 ^3/uL (0-0.8); Eosinophils % (auto) 0.3 % (0.0-7.0); Hematocrit 42.3 % (41.0-53.0); Hemoglobin 14.7 g/dL (13.5-17.5); Lymphocytes # (auto) 2.2 10 ^3/uL (0.4-5.4); Lymphocytes % (auto) 19.3 % (10.0-50.0); Mean Corpuscular Hemoglobin 29.6 pg (28.0-32.0); Mean Corpuscular Hgb Conc. 34.9 g/dL (32.0-36.0); Mean Corpuscular Volume 84.9 fL (80.0-100.0); Monocytes # (auto) 0.1 10 ^3/uL (0-1.3); Monocytes % (auto) 0.9 % (0.0-12.0); Neutrophils # (auto) 8.9 10 ^3/uL (1.6-8.6); Neutrophils % (auto) 79.3 % (37.0-80.0); Nucleated Red Blood Cells % 0.2 %; Platelet Count (auto) 224 10^3/uL (140-450); Red Blood Cells 4.98 10^6/uL (4.5-5.90); Red Cell Distribution Width 13.8 % (11.8-14.3); White Blood Cell 11.2 10^3/uL (4.4-10.8)
[2020-10-21 09:00] VITALS: BP 135/79
[2020-10-21] MEDS: PANTOPRAZOLE 40 MG TAB PO SCH (09:23)
[2020-10-21] MEDS: ENOXAPARIN SOD 40 MG/0.4 ML SYRINGE SC SCH (09:23)
[2020-10-21] MEDS: amLODIPine BESYLATE 5 MG TAB PO SCH (09:24)
[2020-10-21 10:00] VITALS: BP 135/79
[2020-10-21 13:00] VITALS: BP 143/83
[2020-10-21] MEDS: SUMAtriptan SUCCINATE 25 MG TAB PO PRN (16:57)
[2020-10-21 22:00] VITALS: BP 123/76
[2020-10-22 05:00] VITALS: BP 124/74
[2020-10-22] MEDS: amLODIPine BESYLATE 5 MG TAB PO SCH (09:28)
[2020-10-22] MEDS: PANTOPRAZOLE 40 MG TAB PO SCH (09:29)
[2020-10-22] MEDS: ENOXAPARIN SOD 40 MG/0.4 ML SYRINGE SC SCH (09:29)
[2020-10-22 09:33] VITALS: BP 135/90
[2020-10-22] MEDS: LISINOPRIL 5 MG TAB PO SCH (16:43)
[2020-10-22] MEDS: SUMAtriptan SUCCINATE 25 MG TAB PO PRN (16:43)
[2020-10-22 22:00] VITALS: BP_SYST 118; BP_DIAS 77; BP_DIAS 78
[2020-10-23 09:00] VITALS: BP 126/87
[2020-10-23] MEDS: ACETAMINOPHEN 325 MG TAB PO SCH (09:43)
[2020-10-23] MEDS: PANTOPRAZOLE 40 MG TAB PO SCH (09:43)
[2020-10-23] MEDS: ENOXAPARIN SOD 40 MG/0.4 ML SYRINGE SC SCH (09:43)
[2020-10-23] MEDS: LISINOPRIL 5 MG TAB PO SCH (09:44)
[2020-10-23] MEDS: diphenhdrAMINE HCL 25 MG CAP PO SCH (09:44)
[2020-10-23] MEDS: amLODIPine BESYLATE 5 MG TAB PO SCH (09:44)
[2020-10-23 09:49] VITALS: BP 126/87
[2020-10-23 10:18] LABS: Basophils # (auto) 0 10 ^3/uL (0-0.2); Basophils % (auto) 0.6 % (0.0-2.0); Eosinophils # (auto) 0 10 ^3/uL (0-0.8); Eosinophils % (auto) 0.4 % (0.0-7.0); Hemoglobin 14.9 g/dL (13.5-17.5); Lymphocytes # (auto) 2.7 10 ^3/uL (0.4-5.4); Lymphocytes % (auto) 47.4 % (10.0-50.0); Mean Corpuscular Hemoglobin 29.4 pg (28.0-32.0); Mean Corpuscular Hgb Conc. 34.7 g/dL (32.0-36.0); Mean Corpuscular Volume 84.7 fL (80.0-100.0); Monocytes # (auto) 0.1 10 ^3/uL (0-1.3); Monocytes % (auto) 1.1 % (0.0-12.0); Neutrophils # (auto) 2.9 10 ^3/uL (1.6-8.6); Neutrophils % (auto) 50.5 % (37.0-80.0); Nucleated Red Blood Cells % 0.5 %; Platelet Count (auto) 248 10^3/uL (140-450); Red Blood Cells 5.08 10^6/uL (4.5-5.90); White Blood Cell 5.7 10^3/uL (4.4-10.8)
[2020-10-23 10:50] LABS: Albumin 3.8 g/dL (3.4-5.0); Calcium 8.9 mg/dL (8.5-10.1); Potassium 4.1 mmol/L (3.5-5.1)
[2020-10-23 10:54] LABS: BUN/Creatinine Ratio 20.6; Bilirubin, Total 0.4 mg/dL (0.2-1.0); Total Protein 7.7 g/dL (6.4-8.2)
[2020-10-23] MEDS ORDERED: SODIUM CHL 0.9% IV SCH (11:00)
[2020-10-23] MEDS ORDERED: BLEOMYCIN SULFATE IV SCH (11:00)
[2020-10-23 13:00] VITALS: BP 147/89
[2020-10-23 17:00] VITALS: BP 128/75
[2020-10-23 22:00] VITALS: BP 123/71
[2020-10-23 22:09] VITALS: BP 123/71
[2020-10-24 09:00] VITALS: BP 129/84
[2020-10-24] MEDS: amLODIPine BESYLATE 5 MG TAB PO SCH (09:20)
[2020-10-24] MEDS: PANTOPRAZOLE 40 MG TAB PO SCH (09:20)
[2020-10-24] MEDS: ENOXAPARIN SOD 40 MG/0.4 ML SYRINGE SC SCH (09:21)
[2020-10-24] MEDS: LISINOPRIL 5 MG TAB PO SCH (09:21)
[2020-10-24 09:34] VITALS: BP 129/84
[2020-10-24 13:00] VITALS: BP 144/84
[2020-10-24 22:00] VITALS: BP 123/70
[2020-10-25 09:00] VITALS: BP 126/74
[2020-10-25] MEDS: PANTOPRAZOLE 40 MG TAB PO SCH (09:10)
[2020-10-25] MEDS: amLODIPine BESYLATE 5 MG TAB PO SCH (09:10)
[2020-10-25] MEDS: ENOXAPARIN SOD 40 MG/0.4 ML SYRINGE SC SCH (09:11)
[2020-10-25] MEDS: LISINOPRIL 5 MG TAB PO SCH (09:12)
[2020-10-25] MEDS ORDERED: diphenhdrAMINE HCL 50 MG/1 ML VL IV PRN (09:30)
[2020-10-25 10:00] VITALS: BP 126/74
[2020-10-25 10:11] LABS: Hematocrit 43.3 % (41.0-53.0); Hemoglobin 15.1 g/dL (13.5-17.5); Mean Corpuscular Hemoglobin 29.7 pg (28.0-32.0); Mean Corpuscular Hgb Conc. 34.9 g/dL (32.0-36.0); Platelet Count (auto) 198 10^3/uL (140-450); Red Blood Cells 5.09 10^6/uL (4.5-5.90); Red Cell Distribution Width 13.7 % (11.8-14.3); White Blood Cell 4.1 10^3/uL (4.4-10.8)
[2020-10-25 10:20] LABS: Basophils % (manual) 0 (0.0-2.0); Blast Cells 0; Eosinophils % (manual) 0 (0-7); Metamyelocytes % 0; Myelocytes % 0; Promyelocytes % 0; Reactive Lymphocytes 0
[2020-10-25 10:24] LABS: Albumin 3.9 g/dL (3.4-5.0); Calcium 9.4 mg/dL (8.5-10.1); Potassium 4.1 mmol/L (3.5-5.1)
[2020-10-25 10:28] LABS: BUN/Creatinine Ratio 16.7; Bilirubin, Total 0.6 mg/dL (0.2-1.0); Total Protein 7.9 g/dL (6.4-8.2)
[2020-10-25 11:24] LABS: Band Neutrophils % (manual) 4; Lymphocytes % (manual) 71 (10.0-50.0); Monocytes % (manual) 1 (0-12)
[2020-10-25 20:00] VITALS: BP 133/81
[2020-10-25] MEDS: FILGRASTIM(TBO) 480 MCG/0.8 ML SYRG SC SCH (20:28)
[2020-10-25 21:58] VITALS: BP 133/81
[2020-10-26 05:00] VITALS: BP 111/61
[2020-10-26 08:44] VITALS: BP 120/89
[2020-10-26] MEDS: PANTOPRAZOLE 40 MG TAB PO SCH (10:12)
[2020-10-26] MEDS: amLODIPine BESYLATE 5 MG TAB PO SCH (10:12)
[2020-10-26] MEDS: LISINOPRIL 5 MG TAB PO SCH (10:13)
[2020-10-26] MEDS: ENOXAPARIN SOD 40 MG/0.4 ML SYRINGE SC SCH (10:13)
[2020-10-26 13:00] VITALS: BP 121/70
[2020-10-26 16:50] VITALS: BP 120/82
[2020-10-26] MEDS: FILGRASTIM(TBO) 480 MCG/0.8 ML SYRG SC SCH (20:09)
[2020-10-26 22:08] VITALS: BP 120/75
[2020-10-27 04:39] VITALS: BP 109/66
[2020-10-27 08:38] VITALS: BP 118/69
[2020-10-27] MEDS: amLODIPine BESYLATE 5 MG TAB PO SCH (10:10)
[2020-10-27] MEDS: LISINOPRIL 5 MG TAB PO SCH (10:10)
[2020-10-27] MEDS: ENOXAPARIN SOD 40 MG/0.4 ML SYRINGE SC SCH (10:11)
[2020-10-27 12:25] LABS: Basophils # (auto) 0 10 ^3/uL (0-0.2); Basophils % (auto) 0.4 % (0.0-2.0); Eosinophils # (auto) 0 10 ^3/uL (0-0.8); Eosinophils % (auto) 0.2 % (0.0-7.0); Hematocrit 38.4 % (41.0-53.0); Hemoglobin 13.3 g/dL (13.5-17.5); Lymphocytes % (auto) 20.4 % (10.0-50.0); Mean Corpuscular Hemoglobin 29.2 pg (28.0-32.0); Mean Corpuscular Hgb Conc. 34.6 g/dL (32.0-36.0); Mean Corpuscular Volume 84.4 fL (80.0-100.0); Monocytes # (auto) 0.7 10 ^3/uL (0-1.3); Monocytes % (auto) 6.7 % (0.0-12.0); Neutrophils # (auto) 7.3 10 ^3/uL (1.6-8.6); Neutrophils % (auto) 72.3 % (37.0-80.0); Nucleated Red Blood Cells % 0.1 %; Platelet Count (auto) 138 10^3/uL (140-450); Red Blood Cells 4.55 10^6/uL (4.5-5.90); Red Cell Distribution Width 13.9 % (11.8-14.3); White Blood Cell 10.1 10^3/uL (4.4-10.8)
[2020-10-27 12:31] LABS: Albumin 3.6 g/dL (3.4-5.0); Calcium 8.6 mg/dL (8.5-10.1); Potassium 3.9 mmol/L (3.5-5.1)
[2020-10-27 12:34] LABS: BUN/Creatinine Ratio 16.7; Bilirubin, Total 0.4 mg/dL (0.2-1.0); Total Protein 7.1 g/dL (6.4-8.2)
[2020-10-27 21:53] VITALS: BP 129/78
[2020-10-27 21:54] VITALS: BP 114/67
[2020-10-28] MEDS: amLODIPine BESYLATE 5 MG TAB PO SCH (08:38)
[2020-10-28] MEDS: LISINOPRIL 5 MG TAB PO SCH (08:38)
[2020-10-28] MEDS: ENOXAPARIN SOD 40 MG/0.4 ML SYRINGE SC SCH (08:39)
[2020-10-28 09:30] VITALS: BP 122/78
[2020-10-28 21:17] VITALS: BP 130/74
[2020-10-28 21:52] VITALS: BP 130/74
[2020-10-29] MEDS: amLODIPine BESYLATE 5 MG TAB PO SCH (08:38)
[2020-10-29] MEDS: LISINOPRIL 5 MG TAB PO SCH (08:39)
[2020-10-29] MEDS: ENOXAPARIN SOD 40 MG/0.4 ML SYRINGE SC SCH (08:39)
[2020-10-29 10:00] VITALS: BP 131/68
[2020-10-29 21:30] VITALS: BP 122/69
[2020-10-30] MEDS: amLODIPine BESYLATE 5 MG TAB PO SCH (09:56)
[2020-10-30 10:00] VITALS: BP 117/67
[2020-10-30] MEDS: diphenhdrAMINE HCL 25 MG CAP PO SCH (10:00)
[2020-10-30] MEDS: ACETAMINOPHEN 325 MG TAB PO SCH (10:00)
[2020-10-30] MEDS: LISINOPRIL 5 MG TAB PO SCH (10:03)
[2020-10-30] MEDS: ENOXAPARIN SOD 40 MG/0.4 ML SYRINGE SC SCH (10:04)
[2020-10-30 10:05] LABS: Hematocrit 39.4 % (41.0-53.0); Hemoglobin 13.8 g/dL (13.5-17.5); Mean Corpuscular Hemoglobin 29.3 pg (28.0-32.0); Mean Corpuscular Hgb Conc. 35.1 g/dL (32.0-36.0); Mean Corpuscular Volume 83.6 fL (80.0-100.0); Platelet Count (auto) 90 10^3/uL (140-450); Red Blood Cells 4.71 10^6/uL (4.5-5.90); Red Cell Distribution Width 13.5 % (11.8-14.3); White Blood Cell 2.3 10^3/uL (4.4-10.8)
[2020-10-30 10:10] LABS: Basophils % (manual) 0 (0.0-2.0); Blast Cells 0; Metamyelocytes % 0; Myelocytes % 0; Promyelocytes % 0; Reactive Lymphocytes 0
[2020-10-30 10:23] LABS: Albumin 3.7 g/dL (3.4-5.0); Calcium 8.7 mg/dL (8.5-10.1); Potassium 3.9 mmol/L (3.5-5.1)
[2020-10-30 10:28] LABS: BUN/Creatinine Ratio 19.1; Bilirubin, Total 0.3 mg/dL (0.2-1.0); Total Protein 7.3 g/dL (6.4-8.2)
[2020-10-30 10:31] LABS: Band Neutrophils % (manual) 1; Eosinophils % (manual) 1 (0-7); Lymphocytes % (manual) 84 (10.0-50.0); Monocytes % (manual) 8 (0-12)
[2020-10-30] MEDS ORDERED: ACETAMINOPHEN 325 MG TAB PO SCH (11:15)
[2020-10-30] MEDS ORDERED: diphenhdrAMINE HCL 25 MG CAP PO SCH (11:15)
[2020-10-30] MEDS ORDERED: SODIUM CHL 0.9% IV SCH (12:15)
[2020-10-30] MEDS ORDERED: BLEOMYCIN SULFATE IV SCH (12:15)
[2020-10-30 22:00] VITALS: BP 128/73
[2020-10-30 23:21] VITALS: BP 128/73
== END 2020-10-31 06:50 | disposition short-term general hospital (02) | DRG 711 ==
LOC: WEST WING 12:37 → EEVIPCON 12:37 → TELE-WESTW 09-23 09:46
PROVIDERS: ADMIT Internal Medicine; ATTEND Internal Medicine
PROC: 0VBB0ZZ Excision of Left Testis, Open Approach (ICD-10-PCS; principal; 2020-09-12 07:15)
PROC: 07B23ZX Excision of Left Neck Lymphatic, Percutaneous Approach, Diagnostic (ICD-10-PCS; 2020-09-13)
PROC: 0JH63WZ Insertion of Totally Implantable Vascular Access Device into Chest Subcutaneous Tissue and Fascia, Percutaneous Approach (ICD-10-PCS; 2020-09-15)
PROC: 02HV33Z Insertion of Infusion Device into Superior Vena Cava, Percutaneous Approach (ICD-10-PCS; 2020-09-15)
PROC: B548ZZA Ultrasonography of Superior Vena Cava, Guidance (ICD-10-PCS; 2020-09-15)
DX: C62.92 Malignant neoplasm of left testis, unspecified whether descended or undescended (principal); C85.91 Non-Hodgkin lymphoma, unspecified, lymph nodes of head, face, and neck; F15.10 Other stimulant abuse, uncomplicated; F17.200 Nicotine dependence, unspecified, uncomplicated; R91.1 Solitary pulmonary nodule; I10 Essential (primary) hypertension; L02.432 Carbuncle of left axilla; D18.00 Hemangioma unspecified site; B35.1 Tinea unguium; F32.9 Major depressive disorder, single episode, unspecified; K76.89 Other specified diseases of liver; L60.0 Ingrowing nail; R04.0 Epistaxis; G43.909 Migraine, unspecified, not intractable, without status migrainosus; Z20.822 Contact with and (suspected) exposure to COVID-19
CPT/HCPCS: 10022; 36415; 70492; 70553; 71045; 71275; 74178; 74183; 76870; 76942; 80048; 80053; 81001; 82105; 83615; 84702; 85007; 85025; 85027; 85048; 85610; 85730; 86304; 86850; 86900; 86901; 87081; 87426; 97163; C1788; G0378; J0690; J0694; J1447; J2001; J2250; J2405; J2704; J3490; J9060